=== PATIENT | male | born 1930 | race Caucasian/White ===

== ENCOUNTER 2016-10-23 17:27 | Emergency (ER) | payer MEDICARE ==
[2016-10-23 20:54] LABS: HEMOGLOBIN 11.5 gm/dl (14.0-17.5); RED BLOOD COUNT 3.88 M/UL (4.20-5.50); WHITE BLOOD COUNT 14.7 K/UL (4.5-11.0)
== END 2016-10-24 01:45 | disposition home or self-care (01) ==
LOC: ER1 17:27
PROVIDERS: Family Medicine
DX: K80.20 Calculus of gallbladder without cholecystitis without obstruction (principal); R33.9 Retention of urine, unspecified; E11.9 Type 2 diabetes mellitus without complications; I10 Essential (primary) hypertension; Z85.51 Personal history of malignant neoplasm of bladder
CPT/HCPCS: 36415; 80053; 81001; 82150; 83690; 85025; 99284